=== PATIENT | female | born 1985 | race Caucasian/White ===

== ENCOUNTER 2017-06-20 16:40 | Emergency (ER) | payer SELFPAY ==
[2017-06-20] MEDS ORDERED: Ketorolac 60 MG/2 ML SDV IM ONE (17:27)
--- NOTE | 2017-06-20 18:10 | EDM.PDOC ---
ED HPI GENERAL MEDICAL PROBLEM - General Chief Complaint: Back Pain or Injury Stated Complaint: BACK PAIN Time Seen by Provider: 06/20/17 16:43 Source of Information: Reports: Patient History Limitations: Reports: No Limitations - History of Present Illness INITIAL COMMENTS - FREE TEXT/NARRATIVE: HISTORY AND PHYSICAL: History of present illness: Patient is a 31-year-old female who presents to the emergency room with complaints of left low back pain. She states on Saturday she bent over to pick something up and felt an intense pain in her left low back that radiates down her [place] all the way to the posterior heel. She does have a history of sciatica. She thought she would wait a couple days to see if her pain had resolved. She has taken warm baths, used icy-hot, and rested. The pain has not alleviated and brought her to the emergency room today. She states that she has a infant at home, notices the pain more when she's having to bend over and pick the child up. Increased pain with carrying the child around for long periods of time. She is currently not breast-feeding. In does have a significant other at home that does help. Denies any dysuria, incontinence of urine or stool, or any changes in her bowel pattern. Review of systems: As per history of present illness and below otherwise all systems reviewed and negative. Past medical history: As per history of present illness and as reviewed below otherwise noncontributory. Surgical history: As per history of present illness and as reviewed below otherwise noncontributory. Social history: No reported history of drug or alcohol abuse. Family history: As per history of present illness and as reviewed below otherwise noncontributory. Physical exam: Gen.: Well-developed and well-nourished 31-year-old female. Alert and oriented. Appears in no acute distress and is nontoxic appearing. HEENT: Atraumatic, normocephalic, pupils reactive, negative for conjunctival pallor or scleral icterus, mucous membranes moist, throat clear, neck supple, nontender, trachea midline. Lungs: Clear to auscultation, breath sounds equal bilaterally, chest nontender. Heart: S1S2, regular, negative for clicks, rubs, or JVD. Abdomen: Soft, nondistended, nontender. Negative for masses or hepatosplenomegaly. Negative for costovertebral tenderness. Pelvis: Stable nontender. Genitourinary: Deferred. Rectal: Deferred. Back: Cervical spine and back were palpated without any pinpoint vertebral tenderness. No step-offs, crepitus, obvious deformities noted. Extremities: Atraumatic, does have some muscular tenderness over the left posterior hip. Patient reports that the pain starts at that point and does radiate down the glute into the posterior thigh and calf. She denies any numbness or tingling to the lower extremity. Strong pedal pulses bilaterally. Able to walk on her heels and toes without any difficulty. Able to squat, flexion and extension of the spine, and twist [id number]. She is negative for cords or calf pain. Neurovascular unremarkable. Neuro: Awake, alert, oriented. Cranial nerves II through XII unremarkable. Cerebellum unremarkable. Motor and sensory unremarkable throughout. Exam nonfocal. I did discuss with the patient that this is likely sciatic pain. She states that with previous sciatic pain that it would resolve on its own within 2-3 days with [id number] measures. I did offer her an x-ray, but did tell her that this is looking at the bony structure and with her not having an injury that it is likely to be normal. She agrees that the x-ray is probably of no value at this time. She is agreeable to trying Toradol and Norflex IM here. With a prescription for Flexeril and Cataflam for home. I did inform her if she continues to have this pain she may need to follow-up with her primary care provider as further imaging that is not available in the ER may be warranted, MRI. Patient is agreeable to plan of care and she denies any further questions at this time. Diagnostics: [] Therapeutics: Norflex, Toradol Impression: Back pain with sciatica Plan: 1. Please take your medications as prescribed. Flexeril is a muscle relaxer, and may make you drowsy. So please do not take this medication on driving, needing to care for her children, or functioning at work. Cataflam has been prescribed, this is an anti-inflammatory. Please do not take any additional NSAIDs with this medication, such as ibuprofen or Aleve. You may want to take this medication with food. 2. Rest, gentle heat to the area, gentle stretching may be beneficial. 3. Follow-up with your primary caregiver in the next 1-2 days. Return to the ED as needed and as discussed. Definitive disposition and diagnosis as appropriate pending reevaluation and review of above. Onset Date: 06/16/17 Duration: Day(s): Location: Reports: Back Lower Back Pain Score (Numeric/FACES): 7 - Related Data Allergies Allergy/AdvReac Type Severity Reaction Status Date / Time amoxicillin Allergy Rash Verified 06/20/17 17:05 Home Meds: Home Meds . 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 Respiratory History: Reports: None Gastrointestinal History: Reports: None Genitourinary History: Reports: None [employer] History: Reports: Musculoskeletal History: Reports: None Neurological History: Reports: None Psychiatric History: Reports: None Endocrine/Metabolic History: Reports: None Hematologic History: Reports: None Immunologic History: Reports: None Oncologic (Cancer) History: Reports: None Dermatologic History: Reports: None - Past Surgical History Head Surgeries/Procedures: Reports: None HEENT Surgical History: Reports: None Cardiovascular Surgical History: Reports: None Respiratory Surgical History: Reports: None GI Surgical History: Reports: None Female Surgical History: Reports: None Endocrine Surgical History: Reports: None Neurological Surgical History: Reports: None Musculoskeletal Surgical History: Reports: None Oncologic Surgical History: Reports: None Dermatological Surgical History: Reports: None Social & Family History - Family History Family Medical History: Noncontributory - Tobacco Use Smoking Status *Q: Never Smoker - Caffeine Use Caffeine Use: Reports: Coffee - Recreational Drug Use Recreational Drug Use: No ED ROS GENERAL - Review of Systems Review Of Systems: ROS reveals no pertinent complaints other than HPI. ED EXAM,LOWER BACK PAIN/INJURY - Physical Exam Exam: See Below (See dictation) Course - Vital Signs Last Recorded V/S: Last Vital Signs Temp 98.7 F 06/20/17 17:05 Pulse 85 06/20/17 17:05 Resp 18 06/20/17 17:05 BP 113/70 06/20/17 17:05 Pulse Ox 98 06/20/17 17:05 - Orders/Labs/Meds Orders: Active Orders 24 hr Category Date Time Status Orphenadrine [Norflex] Med 06/20/17 17:30 Ordered 60 mg IM Q12H Medication Orders Orphenadrine Citrate (Norflex) 60 mg IM Q12H [facility] Meds: Medications Generic Name Dose Route Start Last Admin Trade Name Freq PRN Reason Stop Dose Admin Orphenadrine Citrate 60 mg 06/20/17 17:30 Norflex IM Q12H RENETTA Discontinued Medications Generic Name Dose Route Start Last Admin Trade Name Freq PRN Reason Stop Dose Admin Ketorolac Tromethamine 60 mg 06/20/17 17:27 Toradol IM 06/20/17 17:28 ONETIME ONE Departure - Departure Time of Disposition: 18:10 Disposition: Home, Self-Care 01 Clinical Impression: Back pain with sciatica - Discharge Information Referrals: PCP,None [Primary Care Provider] - Additional Instructions: My general discharge The following information is given to patients seen in the emergency department who are being discharged to home. This information is to outline your options for follow-up care. We provide all patients seen in our emergency department with a follow-up referral. The need for follow-up, as well as the timing and circumstances, are variable depending upon the specifics of your emergency department visit. If you don't have a primary care physician on staff, we will provide you with a referral. We always advise you to contact your personal physician following an emergency department visit to inform them of the circumstance of the visit and for follow-up with them and/or the need for any referrals to a consulting specialist. The emergency department will also refer you to a specialist when appropriate. This referral assures that you have the opportunity for follow-up care with a specialist. All of these measure are taken in an effort to provide you with optimal care, which includes your follow-up. Under all circumstances we always encourage you to contact your private physician who remains a resource for coordinating your care. When calling for follow-up care, please make the office aware that this follow-up is from your recent emergency room visit. If for any reason you are refused follow-up, please contact the [facility] Emergency Department at and asked to speak to the emergency department charge nurse. [facility] [address] [place] [phone] 1. Please take your medications as prescribed. Flexeril is a muscle relaxer, and may make you drowsy. So please do not take this medication on driving, needing to care for her children, or functioning at work. Cataflam has been prescribed, this is an anti-inflammatory. Please do not take any additional NSAIDs with this medication, such as ibuprofen or Aleve. You may want to take this medication with food. 2. Rest, gentle heat to the area, gentle stretching may be beneficial. 3. Follow-up with your primary caregiver in the next 1-2 days. As we discussed, if you continued to have pain in your back you may need further imaging through your primary care provider (such as an MRI) which is unavailable in the emergency department. Return to the ED as needed and as discussed. - My Orders Last 24 Hours: My Active Orders 06/20/17 17:30 Orphenadrine [Norflex] 60 mg IM Q12H - Assessment/Plan Last 24 Hours: My Active Orders 06/20/17 17:30 Orphenadrine [Norflex] 60 mg IM Q12H
== END 2017-06-20 18:25 | disposition home or self-care (01) ==
LOC: MW.ED 16:40
DX: M54.42 Lumbago with sciatica, left side (principal); Z88.1 Allergy status to other antibiotic agents
CPT/HCPCS: 96372; 99283; J1885; J2360

== ENCOUNTER 2018-03-03 11:14 | Inpatient (IN) | payer BC ==
[2018-03-03] MEDS ORDERED: Terbutaline 1 MG/ML SDV SUBCUT PRN (11:28)
[2018-03-03] MEDS ORDERED: Methylergonovine 0.2 MG/1 ML Amp IM PRN (11:28)
[2018-03-03] MEDS ORDERED: Butorphanol 1 MG/ML SDV IVPUSH PRN (11:28)
[2018-03-03] MEDS ORDERED: Water For Irrigation,Sterile 1,000 ML Container IRR PRN (11:28)
[2018-03-03] MEDS ORDERED: Tranexamic Acid 1,000 MG in Sodium Chloride 0.9% 100 ML IV PRN (11:28)
[2018-03-03] MEDS ORDERED: Nalbuphine 10 MG/1 ML Vial IVPUSH PRN (11:28)
[2018-03-03] MEDS ORDERED: Carboprost Tromethamine 250 MCG/1 ML Amp IM PRN (11:28)
[2018-03-03] MEDS ORDERED: Misoprostol 200 MCG Tab PO PRN (11:28)
[2018-03-03] MEDS ORDERED: Sodium Chloride 0.9% 2.5 ML Syringe FLUSH PRN (11:28)
[2018-03-03] MEDS ORDERED: Sodium Chloride 0.9% 10 ML Syringe FLUSH PRN (11:28)
[2018-03-03] MEDS ORDERED: Lidocaine 1% 50 ML MDV INJECT PRN (11:28)
[2018-03-03] MEDS ORDERED: Oxytocin/0.9 % Sodium Chloride 30 UNIT/500 ML BAG IV SCH ×2 (11:30)
[2018-03-03] MEDS: Lactated Ringers 1,000 ML IV SCH ×3 (12:00→15:47)
[2018-03-03] MEDS ORDERED: Ropivacaine 0.2% 2 MG/ML 20 ML SDV ONE (15:12)
[2018-03-03] MEDS ORDERED: Acetaminophen 500 MG Tab PO PRN (17:01)
[2018-03-03] MEDS ORDERED: Ibuprofen 400 MG Tab PO PRN (17:01)
[2018-03-03] MEDS ORDERED: Lanolin 100% Cream 7 GM Tube TOP PRN (17:01)
[2018-03-03] MEDS ORDERED: Witch Hazel Medicated Pads 40/Jar TOP PRN (17:01)
[2018-03-03] MEDS ORDERED: Benzocaine/Menthol 20%-0.5% Spray 78 GM Cannister TOP PRN (17:01)
[2018-03-03] MEDS ORDERED: Bisacodyl 10 MG Supp RECTAL PRN (17:01)
--- NOTE | 2018-03-03 17:08 | PCM.DEL ---
L & D Note - General Info Date of Service: 03/03/18 Mother's Due Date: 03/08/18 - Delivery Note Labor: Induced by Oxytocin Delivery Outcome: Livebirth Presentation: Right Occiput Anterior (LANI) Amniotic Fluid Description: Clear Laceration: None Placenta: Intact Cord: 3 Vessels Estimated Blood Loss: 300 Resuscitation Needed: No : Bulb Syringe Score 1 min: 9 Score 5 min: 9 Delivery Comments (Free Text/Narrative):: Live male delivered at 437pm, 9/9 , weight 4410g , EBL 300 - General Info Date of Service: 03/03/18 - Patient Data Weight - Most Recent: 105.687 kg Lab Results Last 24 Hours: Laboratory Results - last 24 hr 03/03/18 03/03/18 Range/Units 11:45 11:45 WBC 9.70 (4.0-11.0) K/uL RBC 4.35 (4.30-5.90) M/uL Hgb 11.6 L (12.0-16.0) g/dL Hct 34.8 L (36.0-46.0) % MCV 80.0 (80.0-98.0) fL MCH 26.7 L (27.0-32.0) pg MCHC 33.3 (31.0-37.0) g/dL RDW Std Deviation 46.6 (28.0-62.0) fl RDW Coeff of Ankit 16 H (11.0-15.0) % Plt Count 204 (150-400) K/uL MPV 11.40 (7.40-12.00) fL Nucleated RBC % 0.0 /100WBC Nucleated RBCs # 0 K/uL Blood Type O POSITIVE Antibody Screen NEGATIVE Med Orders - Current: Current Medications Acetaminophen (Tylenol Extra Strength) 500 mg PO Q4H PRN PRN Reason: Pain Acetaminophen (Tylenol Extra Strength) 1,000 mg PO Q4H PRN PRN Reason: Pain Benzocaine/Menthol (Dermoplast Pain Relief 20%-0.5% [place]) 78 gm TOP ASDIRECTED PRN PRN Reason: Perineal Comfort Measure Bisacodyl (Dulcolax) 10 mg RECTAL ONETIME PRN PRN Reason: Constipation Butorphanol Tartrate (Stadol) 1 mg IVPUSH ASDIRECTED PRN PRN Reason: Pain Carboprost Tromethamine (Hemabate Ds) 250 mcg IM ASDIRECTED PRN PRN Reason: Post Hemorrhage Docusate Sodium (Colace) 100 mg PO BID PRN PRN Reason: Constipation Emollient Ointment (Lansinoh Hpa) 0 gm TOP ASDIRECTED PRN PRN Reason: Sore Nipples Lactated Ringer's (Ringers, Lactated) 1,000 mls @ 150 mls/hr IV ASDIRECTED RENETTA Last Admin: 03/03/18 15:47 Dose: 150 mls/hr Oxytocin/Sodium Chloride (Oxytocin 30 Unit/500 Ml-Ns) 30 unit in 500 mls @ 999 mls/hr IV TITRATE RENETTA Oxytocin/Sodium Chloride (Oxytocin 30 Unit/500 Ml-Ns) 30 unit in 500 mls @ 2 mls/hr IV TITRATE RENETTA; Protocol Last Titration: 03/03/18 15:49 Dose: 10 munits/min, 10 mls/hr Tranexamic Acid 1,000 mg/ (Sodium Chloride) 110 mls @ 660 mls/hr IV ONETIME PRN PRN Reason: Bleeding Ibuprofen (Motrin) 400 mg PO Q4H PRN PRN Reason: Pain Ibuprofen (Motrin) 800 mg PO Q6H PRN PRN Reason: Pain Lidocaine HCl (Xylocaine 1%) 50 ml INJECT ONETIME PRN PRN Reason: Laceration repair Methylergonovine Maleate (Methergine) 0.2 mg IM ASDIRECTED PRN PRN Reason: Post Hemorrhage Misoprostol (Cytotec) 200 mcg PO ONETIME PRN PRN Reason: Post Hemorrhage Nalbuphine HCl (Nubain) 10 mg IVPUSH ASDIRECTED PRN PRN Reason: Pain (severe 7-10) Oxycodone HCl (Oxycodone) 5 mg PO Q2H PRN PRN Reason: Pain Sodium Chloride (Saline Flush) 10 ml FLUSH ASDIRECTED PRN PRN Reason: Keep Vein Open Sodium Chloride (Saline Flush) 2.5 ml FLUSH ASDIRECTED PRN PRN Reason: Keep Vein Open Sterile Water (Sterile Water For Irrigation) 1,000 ml IRR ASDIRECTED PRN PRN Reason: delivery Last Admin: 03/03/18 16:31 Dose: 1,000 ml Terbutaline Sulfate (Brethine) 0.25 mg SUBCUT ASDIRECTED PRN PRN Reason: Tacysystole [place] Arri[place] (Tucks) 1 pad TOP ASDIRECTED PRN PRN Reason: comfort care Discontinued Medications Fentanyl/Bupivacaine HCl (Eaujrwbr-Beacp-Aq 2 Mcg/Ml-0.125%) Confirm Administered Dose 100 mls @ as directed EP .STK-MED ONE Stop: 03/03/18 15:12 Ropivacaine (Naropin 0.2%) Confirm Administered Dose 20 ml .ROUTE .STK-MED ONE Stop: 03/03/18 15:13 - Problem List & Annotations (1) Vaginal delivery SNOMED Code(s): 884966546 Code(s): O80 - ENCOUNTER FOR FULL-TERM UNCOMPLICATED DELIVERY Status: Acute Current Visit: Yes - Problem List Review Problem List Initiated/Reviewed/Updated: Yes - My Orders Last 24 Hours: My Active Orders 03/03/18 11:28 Patient Status [ADT] Routine Bedrest Bathroom Privileges [RC] ASDIRECTED Communication Order [RC] ASDIRECTED Communication Order [RC] ASDIRECTED Heart Tones [RC] CONTINUOUS Non Stress Test [RC] PER UNIT ROUTINE May Shower [RC] ASDIRECTED Notify Provider [RC] PRN Notify Provider [RC] PRN Oxygen Therapy [RC] ASDIRECTED Up ad Huong [RC] ASDIRECTED Vaginal Exam [RC] PRN Vaginal Exam [RC] PRN Vital Signs [RC] PER UNIT ROUTINE Vital Signs [RC] PER UNIT ROUTINE Butorphanol [Stadol] 1 mg IVPUSH ASDIRECTED PRN Carboprost Tromethamine [Hemabate DS] 250 mcg IM ASDIRECTED PRN Lidocaine 1% [Xylocaine 1%] 50 ml INJECT ONETIME PRN Methylergonovine [Methergine] 0.2 mg IM ASDIRECTED PRN Nalbuphine [Nubain] 10 mg IVPUSH ASDIRECTED PRN Sodium Chloride 0.9% [Saline Flush] 10 ml FLUSH ASDIRECTED PRN Sodium Chloride 0.9% [Saline Flush] 2.5 ml FLUSH ASDIRECTED PRN Terbutaline [Brethine] 0.25 mg SUBCUT ASDIRECTED PRN Tranexamic Acid [Cyklokapron] 1,000 mg Sodium Chloride 0.9% [Normal Saline] 100 ml IV ONETIME Water For Irrigation,Sterile [Sterile Water for Irrigation] 1,000 ml IRR ASDIRECTED PRN miSOPROStol [Cytotec] 200 mcg PO ONETIME PRN Peripheral IV Insertion Adult [OM.PC] Routine Resuscitation Status Routine 03/03/18 11:30 Lactated Ringers [Ringers, Lactated] 1,000 ml IV ASDIRECTED Oxytocin/0.9 % Sodium Chloride [Oxytocin 30 Unit/500 ML-NS] 30 unit in 500 ml IV TITRATE Oxytocin/0.9 % Sodium Chloride [Oxytocin 30 Unit/500 ML-NS] 30 unit in 500 ml IV TITRATE Medication Administration Instruction [OM.PC] Q3H 03/03/18 17:01 Patient Status [ADT] Routine May Shower [RC] ASDIRECTED Up ad Huong [RC] ASDIRECTED Vital Signs [RC] PER UNIT ROUTINE Acetaminophen [Tylenol Extra Strength] 1,000 mg PO Q4H PRN Acetaminophen [Tylenol Extra Strength] 500 mg PO Q4H PRN Benzocaine/Menthol [Dermoplast Pain Relief 20%-0.5% [place]] 78 gm TOP ASDIRECTED PRN Bisacodyl [Dulcolax] 10 mg RECTAL ONETIME PRN Docusate Sodium [Colace] 100 mg PO BID PRN Ibuprofen [Motrin] 400 mg PO Q4H PRN Ibuprofen [Motrin] 800 mg PO Q6H PRN Lanolin [Lansinoh HPA] See Dose Instructions TOP ASDIRECTED PRN Witch Corina [Tucks] 1 pad TOP ASDIRECTED PRN oxyCODONE 5 mg PO Q2H PRN Assess Lochia [WOMSER] Per Unit Routine Assess Uterine Involution [WOMSER] Per Unit Routine Peripheral IV Discontinue [OM.PC] Routine 03/03/18 Lunch Clear Liquid Diet [DIET] 03/04/18 05:11 HEMOGLOBIN/HEMATOCRIT,HH [HEME] Timed
[2018-03-03] MEDS: Docusate Sodium 100 MG Cap PO PRN (21:17)
[2018-03-03] MEDS: Ibuprofen 800 MG Tab PO PRN (21:17)
[2018-03-03] MEDS: oxyCODONE 5 MG Tab PO PRN (22:33)
[2018-03-04] MEDS: Ibuprofen 800 MG Tab PO PRN ×4 (04:02→23:51)
[2018-03-04] MEDS: Acetaminophen 500 MG Tab PO PRN ×3 (07:27→22:20)
[2018-03-04] MEDS: oxyCODONE 5 MG Tab PO PRN ×5 (07:28→22:18)
--- NOTE | 2018-03-04 08:28 | OR ---
SURGEON: RIGOBERTO CHAU DATE OF PROCEDURE: 03/03/2018 PREOPERATIVE DIAGNOSIS: A 32-year-old, 4, para 3, at 39 weeks and 3 days, admitted for induction of labor secondary to decreased movement and POSTOPERATIVE DIAGNOSIS: A 32-year-old, 4, para 3, at 39 weeks and 3 days, admitted for induction of labor secondary to decreased movement and PROCEDURE: Normal spontaneous vaginal delivery. ESTIMATED BLOOD LOSS: 300. ANESTHESIA: Epidural. FINDINGS: Live male infant delivered at 7 p.m. scores of 9 and 9. Weight is 4410 g. Three-vessel cord noted. Normal placenta. BRIEF HISTORY ABOUT THE PATIENT: This is a 32-year-old G4, P3 who was seen earlier in the clinic and was requesting induction of labor due to her fast history of labor. The patient was examined in the clinic and was stage 4, -2. She was consented and explained the risks, benefits, and alternatives of induction of labor. The patient agreed for the procedure and wanted to be induced. She was explained the risks of induction. The patient was then transferred to Labor and Delivery, where Pitocin was started and she was examined. . PROCEDURE IN DETAIL: With the patient's good pushing effort, she delivered the head in LANI position, followed subsequently by the anterior and posterior shoulder and the body of the infant was delivered. The infant was placed on the maternal abdomen and was suctioned. The delayed cord clamping was observed. The placenta was delivered via controlled cord traction. IV Pitocin was started. The perineum was inspected and was found to be intact. The uterus was well contracted. Lochia was normal. All instrument and lap count were correct x2. The patient was left with baby in a stable condition. CELSO / MIKEY /[id number]
[2018-03-04] MEDS: Docusate Sodium 100 MG Cap PO PRN (09:53)
--- NOTE | 2018-03-04 14:50 | PCM.PNPP ---
- General Info Date of Service: 03/04/18 Admission Dx/Problem (Free Text): 32yo s/p , PPD1 Subjective Update: Patient denies any complains , she is ambulating, tolerating regular diet and Functional Status: Reports: Pain Controlled, Tolerating Diet, Ambulating, Urinating - Review of Systems General: Reports: No Symptoms HEENT: Reports: No Symptoms Pulmonary: Reports: No Symptoms Cardiovascular: Reports: No Symptoms Gastrointestinal: Reports: No Symptoms Genitourinary: Reports: No Symptoms Musculoskeletal: Reports: No Symptoms Skin: Reports: No Symptoms Neurological: Reports: No Symptoms Psychiatric: Reports: No Symptoms - General Info Date of Service: 03/04/18 - Patient Data Vital Signs - Most Recent: Last Vital Signs Temp 36.4 C 03/04/18 11:53 Pulse 60 03/04/18 11:53 Resp 18 03/04/18 11:53 BP 118/68 03/04/18 11:53 Pulse Ox 96 03/04/18 11:53 Weight - Most Recent: 105.687 kg Lab Results - Last 24 Hours: Laboratory Results - last 24 hr 03/04/18 Range/Units 05:15 Hgb 10.8 L (12.0-16.0) g/dL Hct 32.1 L (36.0-46.0) % Med Orders - Current: Current Medications Acetaminophen (Tylenol Extra Strength) 500 mg PO Q4H PRN PRN Reason: Pain Last Admin: 03/03/18 22:33 Dose: 500 mg Acetaminophen (Tylenol Extra Strength) 1,000 mg PO Q4H PRN PRN Reason: Pain Last Admin: 03/04/18 14:32 Dose: 1,000 mg Benzocaine/Menthol (Dermoplast Pain Relief 20%-0.5% [place]) 78 gm TOP ASDIRECTED PRN PRN Reason: Perineal Comfort Measure Last Admin: 03/03/18 21:14 Dose: 1 spray Bisacodyl (Dulcolax) 10 mg RECTAL ONETIME PRN PRN Reason: Constipation Carboprost Tromethamine (Hemabate Ds) 250 mcg IM ASDIRECTED PRN PRN Reason: Post Hemorrhage Docusate Sodium (Colace) 100 mg PO BID PRN PRN Reason: Constipation Last Admin: 03/04/18 09:53 Dose: 100 mg Emollient Ointment (Lansinoh Hpa) 0 gm TOP ASDIRECTED PRN PRN Reason: Sore Nipples Last Admin: 03/03/18 21:16 Dose: 1 gm Lactated Ringer's (Ringers, Lactated) 1,000 mls @ 150 mls/hr IV ASDIRECTED RENETTA Last Admin: 03/03/18 15:47 Dose: 150 mls/hr Oxytocin/Sodium Chloride (Oxytocin 30 Unit/500 Ml-Ns) 30 unit in 500 mls @ 999 mls/hr IV TITRATE RENETTA Oxytocin/Sodium Chloride (Oxytocin 30 Unit/500 Ml-Ns) 30 unit in 500 mls @ 2 mls/hr IV TITRATE RENETTA; Protocol Last Titration: 03/03/18 16:36 Dose: 999 munits/min, 999 mls/hr Tranexamic Acid 1,000 mg/ (Sodium Chloride) 110 mls @ 660 mls/hr IV ONETIME PRN PRN Reason: Bleeding Ibuprofen (Motrin) 400 mg PO Q4H PRN PRN Reason: Pain Ibuprofen (Motrin) 800 mg PO Q6H PRN PRN Reason: Pain Last Admin: 03/04/18 09:53 Dose: 800 mg Lidocaine HCl (Xylocaine 1%) 50 ml INJECT ONETIME PRN PRN Reason: Laceration repair Methylergonovine Maleate (Methergine) 0.2 mg IM ASDIRECTED PRN PRN Reason: Post Hemorrhage Misoprostol (Cytotec) 200 mcg PO ONETIME PRN PRN Reason: Post Hemorrhage Oxycodone HCl (Oxycodone) 5 mg PO Q2H PRN PRN Reason: Pain Last Admin: 03/04/18 14:31 Dose: 5 mg Sodium Chloride (Saline Flush) 10 ml FLUSH ASDIRECTED PRN PRN Reason: Keep Vein Open Sodium Chloride (Saline Flush) 2.5 ml FLUSH ASDIRECTED PRN PRN Reason: Keep Vein Open Sterile Water (Sterile Water For Irrigation) 1,000 ml IRR ASDIRECTED PRN PRN Reason: delivery Last Admin: 03/03/18 16:31 Dose: 1,000 ml Terbutaline Sulfate (Brethine) 0.25 mg SUBCUT ASDIRECTED PRN PRN Reason: Tacysystole Witch Corina (Tucks) 1 pad TOP ASDIRECTED PRN PRN Reason: comfort care Last Admin: 03/03/18 21:15 Dose: 1 pad Discontinued Medications Butorphanol Tartrate (Stadol) 1 mg IVPUSH ASDIRECTED PRN PRN Reason: Pain Fentanyl/Bupivacaine HCl (Mdtghbje-Kjmzr-Zi 2 Mcg/Ml-0.125%) Confirm Administered Dose 100 mls @ as directed EP .STK-MED ONE Stop: 03/03/18 15:12 Last Admin: 03/04/18 05:45 Dose: Not Given Nalbuphine HCl (Nubain) 10 mg IVPUSH ASDIRECTED PRN PRN Reason: Pain (severe 7-10) Ropivacaine (Naropin 0.2%) Confirm Administered Dose 20 ml .ROUTE .STK-MED ONE Stop: 03/03/18 15:13 Last Admin: 03/04/18 05:45 Dose: Not Given - Interaction Support Person: - Recovery Exam Fundal Tone: Firm Fundal Level: 1 Fingerbreadths Below Umbilicus Fundal Placement: Midline Lochia Amount: Scant Lochia Color: Rubra/Red Perineum Description: Intact, Minimal Bruising/Swelling Episiotomy/Laceration: None Bladder Status: Voiding Urinary Elimination: Voided - Exam General: Alert, Oriented HEENT: Pupils Equal Neck: Supple Lungs: Clear to Auscultation Cardiovascular: Regular Rate GI/Abdominal Exam: Normal Bowel Sounds Extremities: Normal Inspection Psy/Mental Status: Alert - Problem List & Annotations (1) Vaginal delivery SNOMED Code(s): 337148622 Code(s): O80 - ENCOUNTER FOR FULL-TERM UNCOMPLICATED DELIVERY Status: Acute Current Visit: Yes - Problem List Review Problem List Initiated/Reviewed/Updated: Yes - My Orders Last 24 Hours: My Active Orders 03/03/18 17:01 Patient Status [ADT] Routine May Shower [RC] ASDIRECTED Up ad Huong [RC] ASDIRECTED Vital Signs [RC] PER UNIT ROUTINE Acetaminophen [Tylenol Extra Strength] 1,000 mg PO Q4H PRN Acetaminophen [Tylenol Extra Strength] 500 mg PO Q4H PRN Benzocaine/Menthol [Dermoplast Pain Relief 20%-0.5% [place]] 78 gm TOP ASDIRECTED PRN Bisacodyl [Dulcolax] 10 mg RECTAL ONETIME PRN Docusate Sodium [Colace] 100 mg PO BID PRN Ibuprofen [Motrin] 400 mg PO Q4H PRN Ibuprofen [Motrin] 800 mg PO Q6H PRN Lanolin [Lansinoh HPA] See Dose Instructions TOP ASDIRECTED PRN Witch Corina [Tucks] 1 pad TOP ASDIRECTED PRN oxyCODONE 5 mg PO Q2H PRN Assess Lochia [WOMSER] Per Unit Routine Assess Uterine Involution [WOMSER] Per Unit Routine Peripheral IV Discontinue [OM.PC] Routine 03/04/18 Breakfast Regular Diet [DIET] - Assessment Assessment:: 32 yo s/p , PPD 1 , stable , , normal lochia - Plan Plan:: Routine care
[2018-03-05] MEDS: oxyCODONE 5 MG Tab PO PRN ×3 (06:31→13:09)
[2018-03-05] MEDS: Ibuprofen 800 MG Tab PO PRN (07:53)
--- NOTE | 2018-03-05 08:36 | PCM48HPAN ---
Post Anesthesia Note - EVALUATION WITHIN 48HRS OF ANESTHETIC Vital Signs in Normal Range: Yes Patient Participated in Evaluation: Yes Respiratory Function Stable: Yes Airway Patent: Yes Cardiovascular Function Stable: Yes Hydration Status Stable: Yes Pain Control Satisfactory: Yes Nausea and Vomiting Control Satisfactory: Yes Mental Status Recovered: Yes Resp Rate: 15 - COMMENTS/OBSERVATIONS Free Text/Narrative:: Denies headache. States back is a little sore but otherwise denies any other complaints at this time.
--- NOTE | 2018-03-05 09:16 | PCM.PNPP ---
- General Info Date of Service: 03/05/18 Admission Dx/Problem (Free Text): 32yo s/p , PPD2 Subjective Update: Patient denies any complains , she is ambulating, tolerating regular diet and , she complains of cramping , however relieved with medication Functional Status: Reports: Pain Controlled, Tolerating Diet, Ambulating - Review of Systems General: Reports: No Symptoms HEENT: Reports: No Symptoms Pulmonary: Reports: No Symptoms Cardiovascular: Reports: No Symptoms Gastrointestinal: Reports: No Symptoms Genitourinary: Reports: No Symptoms Musculoskeletal: Reports: No Symptoms Skin: Reports: No Symptoms Neurological: Reports: No Symptoms Psychiatric: Reports: No Symptoms - General Info Date of Service: 03/05/18 - Patient Data Vital Signs - Most Recent: Last Vital Signs Temp 36.6 C 03/04/18 19:49 Pulse 62 03/04/18 19:49 Resp 15 03/05/18 08:35 BP 121/74 03/04/18 19:49 Pulse Ox 98 03/04/18 19:49 Weight - Most Recent: 105.687 kg Med Orders - Current: Current Medications Acetaminophen (Tylenol Extra Strength) 500 mg PO Q4H PRN PRN Reason: Pain Last Admin: 03/03/18 22:33 Dose: 500 mg Acetaminophen (Tylenol Extra Strength) 1,000 mg PO Q4H PRN PRN Reason: Pain Last Admin: 03/04/18 22:20 Dose: 1,000 mg Benzocaine/Menthol (Dermoplast Pain Relief 20%-0.5% [place]) 78 gm TOP ASDIRECTED PRN PRN Reason: Perineal Comfort Measure Last Admin: 03/03/18 21:14 Dose: 1 spray Bisacodyl (Dulcolax) 10 mg RECTAL ONETIME PRN PRN Reason: Constipation Carboprost Tromethamine (Hemabate Ds) 250 mcg IM ASDIRECTED PRN PRN Reason: Post Hemorrhage Docusate Sodium (Colace) 100 mg PO BID PRN PRN Reason: Constipation Last Admin: 03/04/18 09:53 Dose: 100 mg Emollient Ointment (Lansinoh Hpa) 0 gm TOP ASDIRECTED PRN PRN Reason: Sore Nipples Last Admin: 03/03/18 21:16 Dose: 1 gm Lactated Ringer's (Ringers, Lactated) 1,000 mls @ 150 mls/hr IV ASDIRECTED RENETTA Last Admin: 03/03/18 15:47 Dose: 150 mls/hr Oxytocin/Sodium Chloride (Oxytocin 30 Unit/500 Ml-Ns) 30 unit in 500 mls @ 999 mls/hr IV TITRATE RENETTA Oxytocin/Sodium Chloride (Oxytocin 30 Unit/500 Ml-Ns) 30 unit in 500 mls @ 2 mls/hr IV TITRATE RENETTA; Protocol Last Titration: 03/03/18 16:36 Dose: 999 munits/min, 999 mls/hr Tranexamic Acid 1,000 mg/ (Sodium Chloride) 110 mls @ 660 mls/hr IV ONETIME PRN PRN Reason: Bleeding Ibuprofen (Motrin) 400 mg PO Q4H PRN PRN Reason: Pain Ibuprofen (Motrin) 800 mg PO Q6H PRN PRN Reason: Pain Last Admin: 03/05/18 07:53 Dose: 800 mg Lidocaine HCl (Xylocaine 1%) 50 ml INJECT ONETIME PRN PRN Reason: Laceration repair Methylergonovine Maleate (Methergine) 0.2 mg IM ASDIRECTED PRN PRN Reason: Post Hemorrhage Misoprostol (Cytotec) 200 mcg PO ONETIME PRN PRN Reason: Post Hemorrhage Oxycodone HCl (Oxycodone) 5 mg PO Q2H PRN PRN Reason: Pain Last Admin: 03/05/18 06:31 Dose: 5 mg Sodium Chloride (Saline Flush) 10 ml FLUSH ASDIRECTED PRN PRN Reason: Keep Vein Open Sodium Chloride (Saline Flush) 2.5 ml FLUSH ASDIRECTED PRN PRN Reason: Keep Vein Open Sterile Water (Sterile Water For Irrigation) 1,000 ml IRR ASDIRECTED PRN PRN Reason: delivery Last Admin: 03/03/18 16:31 Dose: 1,000 ml Terbutaline Sulfate (Brethine) 0.25 mg SUBCUT ASDIRECTED PRN PRN Reason: Tacysystole Witch Corina (Tucks) 1 pad TOP ASDIRECTED PRN PRN Reason: comfort care Last Admin: 03/03/18 21:15 Dose: 1 pad Discontinued Medications Butorphanol Tartrate (Stadol) 1 mg IVPUSH ASDIRECTED PRN PRN Reason: Pain Fentanyl/Bupivacaine HCl (Jyqzjbqe-Suspu-Rd 2 Mcg/Ml-0.125%) Confirm Administered Dose 100 mls @ as directed EP .STK-MED ONE Stop: 03/03/18 15:12 Last Admin: 03/04/18 05:45 Dose: Not Given Nalbuphine HCl (Nubain) 10 mg IVPUSH ASDIRECTED PRN PRN Reason: Pain (severe 7-10) Ropivacaine (Naropin 0.2%) Confirm Administered Dose 20 ml .ROUTE .STK-MED ONE Stop: 03/03/18 15:13 Last Admin: 03/04/18 05:45 Dose: Not Given - Infant Interaction Support Person: - Recovery Exam Fundal Tone: Firm Fundal Level: 1 Fingerbreadths Below Umbilicus Fundal Placement: Midline Lochia Amount: Scant Lochia Color: Rubra/Red Perineum Description: Intact, Minimal Bruising/Swelling Episiotomy/Laceration: None Bladder Status: Voiding Urinary Elimination: Voided - Exam General: Alert HEENT: Pupils Equal Lungs: Clear to Auscultation, Normal Respiratory Effort Cardiovascular: Regular Rate, Regular Rhythm GI/Abdominal Exam: Normal Bowel Sounds Extremities: Normal Inspection Neurological: No New Focal Deficit Psy/Mental Status: Alert - Problem List & Annotations (1) Vaginal delivery SNOMED Code(s): 760358122 Code(s): O80 - ENCOUNTER FOR FULL-TERM UNCOMPLICATED DELIVERY Status: Acute Current Visit: Yes - Problem List Review Problem List Initiated/Reviewed/Updated: Yes - Assessment Assessment:: 32 yo s/p , PPD 2 , stable , , normal lochia - Plan Plan:: Discharge home
== END 2018-03-05 13:45 | disposition home or self-care (01) | DRG 560 ==
LOC: MW.OBCHECK 11:14 → MW.OB 11:18 → OBSVTOIN 17:01
PROVIDERS: ADMIT Obstetrics & Gynecology; ATTEND Obstetrics & Gynecology
PROC: 10E0XZZ Delivery of Products of Conception, External Approach (ICD-10-PCS; principal; 2018-03-03)
PROC: 10907ZC Drainage of Amniotic Fluid, Therapeutic from Products of Conception, Via Natural or Artificial Opening (ICD-10-PCS; 2018-03-03)
PROC: 3E033VJ Introduction of Other Hormone into Peripheral Vein, Percutaneous Approach (ICD-10-PCS; 2018-03-03)
PROC: 00HU33Z Insertion of Infusion Device into Spinal Canal, Percutaneous Approach (ICD-10-PCS; 2018-03-03)
DX: O36.8130 Decreased fetal movements, third trimester, not applicable or unspecified (principal); Z3A.39 39 weeks gestation of pregnancy; Z37.0 Single live birth
CPT/HCPCS: 36415; 51702; 59025; 59409; 85014; 85018; 85027; 86850; 86900; 86901; A9270-GY; J2590; J2795; J7120

== ENCOUNTER 2018-03-30 17:49 | Emergency (ER) | payer BC ==
[2018-03-30] MEDS ORDERED: Sodium Chloride 0.9% 1,000 ML IV ONE ×2 (18:06→18:51)
[2018-03-30] MEDS ORDERED: Acetaminophen 500 MG Tab PO ONE (18:21)
[2018-03-30] MEDS ORDERED: Ketorolac 30 MG/ML SDV IVPUSH ONE (18:21)
--- NOTE | 2018-03-30 18:22 | EDM.PDOC ---
ED HPI GENERAL MEDICAL PROBLEM - General Chief Complaint: General Stated Complaint: PT WEAK Time Seen by Provider: 03/30/18 17:52 Source of Information: Reports: Patient History Limitations: Reports: No Limitations - History of Present Illness INITIAL COMMENTS - FREE TEXT/NARRATIVE: HISTORY AND PHYSICAL: History of present illness: Patient is a 32-year-old female who presents to the emergency room with complaints of chills, weakness, generalized body aches, low back pain and decreased oral intake. She states she is 4 weeks post vaginal delivery. Reports that the delivery went well and had no complications. Since then she has not had actual vaginal bleeding. She is currently breast-feeding, no concerns. She states over the past 1-2 days she has felt generally weak, bilateral low back pain and chills. She states that she has had very little oral intake today and is concerned she is dehydrated. Denies any chest pain, shortness of breath or cough. Denies any nausea, vomiting , diarrhea, constipation. No blood noted in urine or stools. PCP/OBGYN: Dr Bridges - Patient has a follow up appointment with her Apr 21, 2018 Review of systems: As per history of present illness and below otherwise all systems reviewed and negative. Past medical history: As per history of present illness and as reviewed below otherwise noncontributory. Surgical history: As per history of present illness and as reviewed below otherwise noncontributory. Social history: No reported history of drug or alcohol abuse. Family history: As per history of present illness and as reviewed below otherwise noncontributory. Physical exam: General: Well-developed and well-nourished 32-year-old female. Nontoxic appearing and in no acute distress. Alert and oriented. HEENT: Atraumatic, normocephalic, pupils equal and reactive bilaterally, negative for conjunctival pallor or scleral icterus, mucous membranes moist, throat clear, neck supple, nontender, trachea midline. No drooling or trismus noted. No meningeal signs Lungs: Clear to auscultation, breath sounds equal bilaterally, chest nontender. Heart: S1S2, regular rate and rhythm without overt murmur Breast: No evidence of mastitis. No erythema to the surrounding skin. Abdomen: Soft, nondistended, generalized tenderness to the low to abdomen. Negative for masses or hepatosplenomegaly. Bilateral costovertebral tenderness. Pelvis: Stable nontender. Genitourinary: Deferred. Rectal: Deferred. Skin: Intact, warm to touch, dry. No lesions or rashes noted. Extremities: Atraumatic, negative for cords or calf pain. Neurovascular unremarkable. Neuro: Awake, alert, oriented. Cranial nerves II through XII unremarkable. Cerebellum unremarkable. Motor and sensory unremarkable throughout. Exam nonfocal. Notes: Patient has temperature of 102, blood cultures obtained. Will give IV levaquin while labs are pending. Patient has slight leukocytosis and early UTI. Chest x-ray shows no cardiopulmonary process. CT abdomen and pelvis shows an enlarged uterus which is within normal limits for . No acute findings in the abdomen and pelvis. This information was shared with the patient. She states she does feel somewhat better. I did page Dr. Bridges, OB on-call and her primary OBGYN, to discuss this case with her. She states that if the patient is not feeling better by tomorrow that the patient may call the office on Saturday and they will squeeze her in to her clinic scheduled on Saturday. She recommends that the patient take Motrin 400 mg every 6 hours. Patient is very concerned about which antibiotic to be placed on as she would like to continue to breast feed. Dr Bridges would like her placed on Macrobid as she feels this is safe in . I did share this information with the patient and significant other at bedside. They voice understanding and are agreeable to plan of care. Denies any further questions or concerns at this time. Diagnostics: CBC, CMP, lactic acid, UA, CT abdomen and pelvis, 1 view chest, blood cultures 2 Therapeutics: IV fluid bolus 2, Tylenol, Toradol, Levaquin Prescription: Macrobid Impression: UTI Fever Plan: 1. "Pump and dump" breast milk tonight, if desired. May resume breast feeding tomorrow. 2. Small frequent sips of fluids to prevent dehydration. 3. Take your antibiotic as directed. 4. Please take 400 mg of Motrin, with food, every 6 hours for the next 1-2 days. May use Tylenol for breakthrough pain and fever management. 5. As we discussed may call [facility] on Saturday to be scheduled to see Dr Tobias on Saturday. She is aware of your ER visit today; and said she would try to squeeze you in during clinic. 6. Return to the ED as needed and as discussed. Definitive disposition and diagnosis as appropriate pending reevaluation and review of above. bilateral lower back Pain Score (Numeric/FACES): 7 - Related Data Allergies Allergy/AdvReac Type Severity Reaction Status Date / Time amoxicillin Allergy Rash Verified 03/30/18 18:06 Home Meds: Home Meds Ferrous Sulfate [Iron] 325 mg PO TID 03/03/18 [History] Vit No.129/Iron/FA [ One Daily Tablet] 1 tab PO DAILY 03/03/18 [History] Vit C/Ascorb Sod/Multivit-Min [Emergen-C 500 mg Chewable Tab] 1 tab PO TID 03/03 [History] Past Medical History HEENT History: Reports: None Cardiovascular History: Reports: Other (See Below) Other Cardiovascular History: hole in heart Respiratory History: Reports: None Gastrointestinal History: Reports: None Genitourinary History: Reports: None CLINICAL PHARMACOLOGIST History: Reports: Musculoskeletal History: Reports: None Neurological History: Reports: None Psychiatric History: Reports: None Endocrine/Metabolic History: Reports: None Hematologic History: Reports: Iron Deficiency Immunologic History: Reports: None Oncologic (Cancer) History: Reports: None Dermatologic History: Reports: None - Infectious Disease History Infectious Disease History: Reports: Chicken Pox - Past Surgical History Head Surgeries/Procedures: Reports: None HEENT Surgical History: Reports: None Cardiovascular Surgical History: Reports: None Respiratory Surgical History: Reports: None GI Surgical History: Reports: None Female Surgical History: Reports: None Endocrine Surgical History: Reports: None Neurological Surgical History: Reports: None Musculoskeletal Surgical History: Reports: None Oncologic Surgical History: Reports: None Dermatological Surgical History: Reports: None Social & Family History - Family History Family Medical History: Noncontributory - Tobacco Use Smoking Status *Q: Never Smoker Second Hand Smoke Exposure: Yes - Caffeine Use Caffeine Use: Reports: Coffee - Recreational Drug Use Recreational Drug Use: No ED ROS GENERAL - Review of Systems Review Of Systems: ROS reveals no pertinent complaints other than HPI. ED EXAM, GENERAL - Physical Exam Exam: See Below (See dictation) Course - Vital Signs Last Recorded V/S: Last Vital Signs Temp 102.6 F H 03/30/18 18:44 Pulse 136 H 03/30/18 18:07 Resp 22 H 03/30/18 18:07 BP 126/81 03/30/18 18:07 Pulse Ox 95 03/30/18 18:07 - Orders/Labs/Meds Orders: Active Orders 24 hr Category Date Time Status Abdomen Pelvis w Cont [CT] Stat Exams 03/30/18 18:24 Taken Chest 1V Frontal [CR] Stat Exams 03/30/18 18:06 Taken CULTURE BLOOD [BC] Stat Lab 03/30/18 18:16 Received CULTURE BLOOD [BC] Stat Lab 03/30/18 18:29 Received CULTURE URINE [RM] Stat Lab 03/30/18 18:00 Received Blood Culture x2 Reflex Set [OM.PC] Stat Oth 03/30/18 18:07 Ordered Labs: Laboratory Tests 03/30/18 03/30/18 03/30/18 Range/Units 18:00 18:16 18:16 WBC 12.45 H (4.0-11.0) K/uL RBC 5.48 (4.30-5.90) M/uL Hgb 14.4 (12.0-16.0) g/dL Hct 42.4 (36.0-46.0) % MCV 77.4 L (80.0-98.0) fL MCH 26.3 L (27.0-32.0) pg MCHC 34.0 (31.0-37.0) g/dL RDW Std Deviation 42.7 (28.0-62.0) fl RDW Coeff of Ankit 15 (11.0-15.0) % Plt Count 254 (150-400) K/uL MPV 10.70 (7.40-12.00) fL Neut % (Auto) 82.4 H (48.0-80.0) % Lymph % (Auto) 9.4 L (16.0-40.0) % [place] % (Auto) 7.9 (0.0-15.0) % Eos % (Auto) 0.1 (0.0-7.0) % Baso % (Auto) 0.2 (0.0-1.5) % Neut # (Auto) 10.3 H (1.4-5.7) K/uL Lymph # (Auto) 1.2 (0.6-2.4) K/uL [place] # (Auto) 1.0 H (0.0-0.8) K/uL Eos # (Auto) 0.0 (0.0-0.7) K/uL Baso # (Auto) 0.0 (0.0-0.1) K/uL Nucleated RBC % 0.0 /100WBC Nucleated RBCs # 0 K/uL Lactate (0.20-2.00) mmol/L Sodium 138 (136-145) mmol/L Potassium 3.7 (3.5-5.1) mmol/L Chloride 103 (98-107) mmol/L Carbon Dioxide 24.1 (21.0-32.0) mmol/L BUN 9 (7.0-18.0) mg/dL Creatinine 1.0 (0.6-1.0) mg/dL Est Cr Clr Drug Dosing 82.23 mL/min Estimated GFR (MDRD) > 60.0 ml/min Glucose 98 (74-106) mg/dL Calcium 9.0 (8.5-10.1) mg/dL Total Bilirubin 1.3 H (0.2-1.0) mg/dL AST 26 (15-37) IU/L ALT 35 (14-63) IU/L Alkaline Phosphatase 102 (46-116) U/L Total Protein 7.6 (6.4-8.2) g/dL Albumin 4.1 (3.4-5.0) g/dL Globulin 3.5 (2.0-3.5) g/dL Albumin/Globulin Ratio 1.2 L (1.3-2.8) Urine Color YELLOW Urine Appearance CLEAR Urine pH 6.5 (5.0-8.0) Ur Specific [place] 1.015 (1.001-1.035) Urine Protein NEGATIVE (NEGATIVE) mg/dL Urine Glucose (UA) NEGATIVE (NEGATIVE) mg/dL Urine Ketones NEGATIVE (NEGATIVE) mg/dL Urine Occult Blood SMALL H (NEGATIVE) Urine Nitrite NEGATIVE (NEGATIVE) Urine Bilirubin NEGATIVE (NEGATIVE) Urine Urobilinogen 0.2 (<2.0) EU/dL Ur Leukocyte Esterase SMALL (NEGATIVE) Urine RBC 0-2 (0-2/HPF) Urine WBC 2-6 (0-5/HPF) Ur Epithelial Cells FEW (NONE-FEW) Urine Bacteria FEW (NEGATIVE) Urine Mucus FEW (NONE-MOD) 09/23/18 Range/Units 18:51 WBC (4.0-11.0) K/uL RBC (4.30-5.90) M/uL Hgb (12.0-16.0) g/dL Hct (36.0-46.0) % MCV (80.0-98.0) fL MCH (27.0-32.0) pg MCHC (31.0-37.0) g/dL RDW Std Deviation (28.0-62.0) fl RDW Coeff of [place]kit (11.0-15.0) % Plt Count (150-400) K/uL MPV (7.40-12.00) fL Neut % (Auto) (48.0-80.0) % Lymph % (Auto) (16.0-40.0) % [place] % (Auto) (0.0-15.0) % Eos % (Auto) (0.0-7.0) % Baso % (Auto) (0.0-1.5) % Neut # (Auto) (1.4-5.7) K/uL Lymph # (Auto) (0.6-2.4) K/uL [place] # (Auto) (0.0-0.8) K/uL Eos # (Auto) (0.0-0.7) K/uL Baso # (Auto) (0.0-0.1) K/uL Nucleated RBC % /100WBC Nucleated RBCs # K/uL Lactate 0.9 (0.20-2.00) mmol/L Sodium (136-145) mmol/L Potassium (3.5-5.1) mmol/L Chloride (98-107) mmol/L Carbon Dioxide (21.0-32.0) mmol/L BUN (7.0-18.0) mg/dL Creatinine (0.6-1.0) mg/dL Est Cr Clr Drug Dosing mL/min Estimated GFR (MDRD) ml/min Glucose (74-106) mg/dL Calcium (8.5-10.1) mg/dL Total Bilirubin (0.2-1.0) mg/dL AST (15-37) IU/L ALT (14-63) IU/L Alkaline Phosphatase (46-116) U/L Total Protein (6.4-8.2) g/dL Albumin (3.4-5.0) g/dL Globulin (2.0-3.5) g/dL Albumin/Globulin Ratio (1.3-2.8) Urine Color Urine Appearance Urine pH (5.0-8.0) Ur Specific [place] (1.001-1.035) Urine Protein (NEGATIVE) mg/dL Urine Glucose (UA) (NEGATIVE) mg/dL Urine Ketones (NEGATIVE) mg/dL Urine Occult Blood (NEGATIVE) Urine Nitrite (NEGATIVE) Urine Bilirubin (NEGATIVE) Urine Urobilinogen (<2.0) EU/dL Ur Leukocyte Esterase (NEGATIVE) Urine RBC (0-2/HPF) Urine WBC (0-5/HPF) Ur Epithelial Cells (NONE-FEW) Urine Bacteria (NEGATIVE) Urine Mucus (NONE-MOD) Meds: Medications Discontinued Medications Generic Name Dose Route Start Last Admin Trade Name Freq PRN Reason Stop Dose Admin Acetaminophen 1,000 mg 03/30/18 18:21 03/30/18 18:44 Tylenol Extra Strength PO 03/30/18 18:22 1,000 mg ONETIME ONE Administration Sodium Chloride 1,000 mls @ 999 mls/hr 03/30/18 18:06 03/30/18 18:42 Normal Saline IV 03/30/18 19:06 999 mls/hr STAT ONE Administration Sodium Chloride 1,000 mls @ 999 mls/hr 03/30/18 18:51 Normal Saline IV 03/30/18 19:51 STAT ONE Levofloxacin/Dextrose 750 mg/ 150 mls @ 100 mls/hr 03/30/18 18:56 03/30/18 19 :08 Premix IV 03/30/18 20:25 100 mls/hr ONETIME ONE Administration Iopamidol 100 ml 03/30/18 19:34 03/30/18 19:35 Isovue Multipack-370 (76%) IVPUSH 03/30/18 19:35 100 ml ONETIME STA Administration Ketorolac Tromethamine 30 mg 03/30/18 18:21 03/30/18 18:42 Toradol IVPUSH 03/30/18 18:22 30 mg ONETIME ONE Administration Departure - Departure Time of Disposition: 20:36 Disposition: Home, Self-Care 01 Clinical Impression: Fever Qualifiers: Fever type: unspecified Qualified Code(s): R50.9 - Fever, unspecified UTI (urinary tract infection) Qualifiers: Urinary tract infection type: site unspecified Hematuria presence: without hematuria Qualified Code(s): N39.0 - Urinary tract infection, site not specified - Discharge Information Instructions: Fever, Adult, Urinary Tract Infection, Adult, [id number] Referrals: PCP,None [Primary Care Provider] - Forms: ED Department Discharge Additional Instructions: The following information is given to patients seen in the emergency department who are being discharged to home. This information is to outline your options for follow-up care. We provide all patients seen in our emergency department with a follow-up referral. The need for follow-up, as well as the timing and circumstances, are variable depending upon the specifics of your emergency department visit. If you don't have a primary care physician on staff, we will provide you with a referral. We always advise you to contact your personal physician following an emergency department visit to inform them of the circumstance of the visit and for follow-up with them and/or the need for any referrals to a consulting specialist. The emergency department will also refer you to a specialist when appropriate. This referral assures that you have the opportunity for follow-up care with a specialist. All of these measure are taken in an effort to provide you with optimal care, which includes your follow-up. Under all circumstances we always encourage you to contact your private physician who remains a resource for coordinating your care. When calling for follow-up care, please make the office aware that this follow-up is from your recent emergency room visit. If for any reason you are refused follow-up, please contact the [facility] Emergency Department at and asked to speak to the emergency department charge nurse. [facility] [address] [place] [id number] [facility] [address] [place] [address] 1. "Pump and dump" breast milk tonight, if desired. May resume breast feeding tomorrow. 2. Small frequent sips of fluids to prevent dehydration. 3. Take your antibiotic as directed. 4. Please take 400 mg of Motrin, with food, every 6 hours for the next 1-2 days. May use Tylenol for breakthrough pain and fever management. 5. As we discussed may call [facility] on Saturday morning to be scheduled to see Dr Tobias on Saturday. She is aware of your ER visit today; and said she would try to squeeze you in during clinic. 6. Return to the ED as needed and as discussed. - My Orders Last 24 Hours: My Active Orders 03/30/18 18:00 CULTURE URINE [RM] Stat 03/30/18 18:06 Chest 1V Frontal [CR] Stat 03/30/18 18:07 Blood Culture x2 Reflex Set [OM.PC] Stat 03/30/18 18:16 CULTURE BLOOD [BC] Stat 03/30/18 18:24 Abdomen Pelvis w Cont [CT] Stat 03/30/18 18:29 CULTURE BLOOD [BC] Stat - Assessment/Plan Last 24 Hours: My Active Orders 03/30/18 18:00 CULTURE URINE [RM] Stat 03/30/18 18:06 Chest 1V Frontal [CR] Stat 03/30/18 18:07 Blood Culture x2 Reflex Set [OM.PC] Stat 03/30/18 18:16 CULTURE BLOOD [BC] Stat 03/30/18 18:24 Abdomen Pelvis w Cont [CT] Stat 03/30/18 18:29 CULTURE BLOOD [BC] Stat
[2018-03-30] MEDS ORDERED: Levofloxacin/Dextrose 5%-Water 750 MG in Premix Bag 1 BAG IV ONE (18:56)
[2018-03-30 19:01] LABS: CHLORIDE,CL 103 mmol/L (98-107); SODIUM,NA 138 mmol/L (136-145)
[2018-03-30] MEDS ORDERED: Iopamidol 755 MG/ML 200 ML Multipack Bottle IVPUSH STA (19:34)
--- NOTE | 2018-04-01 09:23 | CR ---
EXAM DATE: 03/30/18 PATIENT'S AGE: 32 Patient: MARINA SHORE Facility: [place], [place] Site . Site : 1985 Study: XRay Chest [id number]/23/2018 6:34:06 PM Ordering Physician: Doctor Kaplan Final Report: Indication: Fever. Abdominal pain. Chest pain. Technique: A single AP portable view of the chest was obtained. Comparison: None Findings: The heart is normal in size. The lungs are clear. No infiltrate, pleural effusion, or pneumothorax is identified. Impression: No acute cardiopulmonary process. Dictated by Argelia Parks MD @ Mar 30 2018 6:45PM (Electronic Signature) Report Signed by Proxy. HALLIE
--- NOTE | 2018-04-01 09:24 | CT ---
EXAM DATE: 03/30/18 PATIENT'S AGE: 32 Patient: MARINA SHORE Facility: [place], [place] Site . Site : 1985 Study: CT Abdomen/Pelvis [id number]/23/2018 7:33:18 PM Ordering Physician: Doctor Kaplan Final Report: Indication: Abdominal pain. for weeks. Technique: Multiple contiguous axial images were obtained from the lung bases through the symphysis pubis after the intravenous administration of 100 milliliters Isovue 370. Please note that all CT scans at this facility use dose modulation, iterative reconstruction, and/or weight-based dosing when appropriate to reduce radiation dose to as low as reasonably achievable. Comparison: None Findings: The lung bases are clear. Scar or atelectasis identified in the posterior aspect of the left lung base. The heart is normal in size. No pericardial effusion is identified. The liver, spleen, pancreas, gallbladder, adrenals, and kidneys are normal. No intrahepatic biliary ductal dilatation or hydronephrosis is identified. The uterus is enlarged, but consistent with the patient`s state. The urinary bladder is normal. The appendix is seen and is normal in caliber. The small and large bowel are normal in caliber. No free air or free fluid is identified within the abdomen or pelvis. The aorta is normal in caliber. No lytic or blastic lesions of the spine are seen. Impression: Enlargement of the uterus, within normal limits for for weeks. No acute findings in the abdomen or pelvis. Please note that all CT scans at this facility use dose modulation, iterative reconstruction, and/or weight-based dosing when appropriate to reduce radiation dose to as low as reasonably achievable. Dictated by Argelia Parks MD @ Mar 30 2018 7:57PM (Electronic Signature) Report Signed by Proxy. [facility]
== END 2018-03-30 21:18 | disposition home or self-care (01) ==
LOC: MW.ED 17:49
DX: O86.20 Urinary tract infection following delivery, unspecified (principal); Z88.1 Allergy status to other antibiotic agents
CPT/HCPCS: 36415; 71045; 74177; 80053; 81001; 83605; 85025; 87040; 87086; 96361; 96365; 96375; 99285; A9270; J1885; J1956; J7040; Q9967